=== PATIENT | male | born 1965 | race Caucasian/White ===

== ENCOUNTER 2017-05-08 21:01 | Emergency (ER) | payer BC, OTHER ==
[2017-05-08 21:22] VITALS: BP 136/84; PULSE 63; TEMP 97.8; BMI 32.5
--- NOTE | 2017-05-08 21:29 | PDOC ---
History of Present Illness - General Chief Complaint: Toothache Stated Complaint: TOOTH PAIN Time Seen by Provider: 05/08/17 21:06 - History of Present Illness Initial Comments: 05/08/17 21:25 "The patient is a 52 year old male, with a significant past medical history of depression, who presents to the emergency department with tooth pain for the past 3 days. States that the pain is in one of his left lower molars. Pain does not radiate. He denies any drainage or swelling from the area. He reports that he has been taking Advil which has relieved the pain significantly. He states that has not had any dental work in a long time. The patient denies chest pain, shortness of breath, and dizziness. Denies fever , chills, nausea, vomit, diarrhea and constipation. Allergies: Penicillins Past surgical history: None reported Social history: No alcohol, tobacco or drug use reported " Past History - Past Medical History Allergies/Adverse Reactions: Allergies Allergy/AdvReac Type Severity Reaction Status Date / Time Penicillins Allergy Verified 05/08/17 21:03 Home Medications: Ambulatory Orders Clindamycin [Cleocin -] 450 mg PO Q8H #21 capsule 05/08/17 COPD: No - Suicide/Smoking/Psychosocial Hx Smoking History: Unknown if ever smoked Have you smoked in the past 12 months: No Number of Cigarettes Smoked Daily: 0 Information on smoking cessation initiated: No Hx Alcohol Use: No Drug/Substance Use Hx: No Substance Use Type: None Review of Systems - Review of Systems Comments:: 05/08/17 21:26 "GENERAL/CONSTITUTIONAL: No fever or chills. No weakness. HEAD, EYES, EARS, NOSE AND THROAT: (+) Left bottom molar pain. No change in vision. No ear pain or discharge. No sore throat. CARDIOVASCULAR: No chest pain or shortness of breath. RESPIRATORY: No cough, wheezing, or hemoptysis. GASTROINTESTINAL: No nausea, vomiting, diarrhea or constipation. GENITOURINARY: No dysuria, frequency, or change in urination. MUSCULOSKELETAL: No joint or muscle swelling or pain. No neck or back pain. SKIN: No rash NEUROLOGIC: No headache, vertigo, loss of consciousness, or change in strength/ sensation. ENDOCRINE: No increased thirst. No abnormal weight change. HEMATOLOGIC/LYMPHATIC: No anemia, easy bleeding, or history of blood clots. ALLERGIC/IMMUNOLOGIC: No hives or skin allergy. " *Physical Exam - Vital Signs Last Vital Signs Temp Pulse Resp BP Pulse Ox 97.8 F 63 14 136/84 100 05/08/17 21:03 05/08/17 21:03 05/08/17 21:03 05/08/17 21:03 05/08/17 21:03 - Physical Exam Comments: 05/08/17 21:29 "GENERAL: Awake, alert, and fully oriented, in no acute distress HEAD: No signs of trauma EYES: PERRLA, EOMI, sclera anicteric, conjunctiva clear ENT: Auricles normal inspection, hearing grossly normal, nares patent, oropharynx clear without exudates. Moist mucosa MOUTH: Good dentition, no obvious caries noted, Tooth #18 with gum recession, mild tenderness with no swelling or drainage, no fluctuance noted NECK: Nontender, no stepoffs, Normal ROM, supple, no lymphadenopathy, JVD, or masses LUNGS: Breath sounds equal, clear to auscultation bilaterally. No wheezes, and no crackles HEART: Regular rate and rhythm, normal S1 and S2, no murmurs, rubs or gallops ABDOMEN: Soft, nontender, normoactive bowel sounds. No guarding, no rebound. No masses EXTREMITIES: Normal range of motion, no edema. No clubbing or cyanosis. No cords, erythema, or tenderness NEUROLOGICAL: Cranial nerves II through XII intact. 5/5 strength and sensation in all extremities, Normal speech, normal gait SKIN: Warm, Dry, normal turgor, no rashes or lesions noted. Medical Decision Making - Medical Decision Making 05/08/17 21:31 52 M with toothache at tooth #18. Exam reveals receding gum. Mild tenderness without other signs of obvious infection, though early dental infection cannot be excluded. - Clindamycin (pen-allergic) - Dental clinic f/u *DC/Admit/Observation/Transfer Diagnosis at time of Disposition: Toothache - Discharge Dispostion Disposition: HOME Condition at time of disposition: Good - Referrals - Patient Instructions Printed Discharge Instructions: DI for Dental Pain Additional Instructions: Take the antibiotics as prescribed. Be sure to follow up with a dentist as soon as possible to have your toothache further evaluated. Try to see one within 48 hours. If you experience worsening pain, swelling, fevers, or any other concerning symptoms, return to the ER immediately. - Post Discharge Activity - Attestations Physician Attestion: 05/08/17 21:37 I, Dr. Luis E Adam MD, attest that this document has been prepared under my direction and personally reviewed by me in its entirety. I further attest, that it accurately reflects all work, treatment, procedures and medical decision -making performed by me.
== END 2017-05-08 21:57 | disposition home or self-care (01) ==
LOC: FER 21:01
DX: K08.89 Other specified disorders of teeth and supporting structures (principal); F32.9 Major depressive disorder, single episode, unspecified
CPT/HCPCS: 99282-25

== ENCOUNTER 2023-08-09 09:26 | Day surgery (SDC) | payer BC, OTHER ==
[2023-08-09] MEDS: LEUPROLIDE ACETATE (ELIGARD) 22.5 MG SYRINGE SQ ONE (10:08)
[2023-08-09 14:35] VITALS: BP 118/72; PULSE 66; RESP 20; TEMP 98.9
== END 2023-08-09 10:30 | disposition home or self-care (01) ==
LOC: J7W 09:26 → JONCCHEMO 09:26
PROVIDERS: ATTEND Internal Medicine Hematology & Oncology
DX: C61 Malignant neoplasm of prostate (principal); Z76.89 Persons encountering health services in other specified circumstances
CPT/HCPCS: 96372; J9217

== ENCOUNTER 2024-02-06 09:00 | Day surgery (SDC) | payer BC, OTHER ==
[~2024-02-06 09:00] MED LIST: LEUPROLIDE ACETATE (ELIGARD) 22.5 MG SYRINGE SQ ONE
[2024-02-06] MEDS: LEUPROLIDE ACETATE (ELIGARD) 22.5 MG SYRINGE SQ ONE (09:11)
[2024-02-06 16:44] VITALS: BP 129/86; PULSE 70; RESP 20; TEMP 98.4
== END 2024-02-06 09:30 | disposition home or self-care (01) ==
LOC: J7W 09:00 → JONCCHEMO 09:00
PROVIDERS: ATTEND Internal Medicine Hematology & Oncology
PROC: 3E013GC Introduction of Other Therapeutic Substance into Subcutaneous Tissue, Percutaneous Approach (ICD-10-PCS; principal; 2024-02-06)
DX: C61 Malignant neoplasm of prostate (principal); Z76.89 Persons encountering health services in other specified circumstances
CPT/HCPCS: 96372; J9217

== ENCOUNTER 2024-05-08 09:09 | Day surgery (SDC) | payer BC, OTHER ==
[2024-05-08] MEDS: LEUPROLIDE ACETATE (ELIGARD) 22.5 MG SYRINGE SQ ONE (09:20)
[2024-05-08 16:49] VITALS: BP 144/92; PULSE 74; RESP 20; TEMP 98.5
== END 2024-05-08 09:40 | disposition home or self-care (01) ==
LOC: JONCCHEMO 09:09 → J7W 09:13 → JONCCHEMO 09:40
PROVIDERS: ATTEND Internal Medicine Hematology & Oncology
PROC: 3E013GC Introduction of Other Therapeutic Substance into Subcutaneous Tissue, Percutaneous Approach (ICD-10-PCS; principal; 2024-05-08)
DX: C61 Malignant neoplasm of prostate (principal)
CPT/HCPCS: 96372; J9217

== ENCOUNTER 2024-08-07 09:18 | Day surgery (SDC) | payer OTHER, BC ==
[2024-08-07] MEDS: LEUPROLIDE ACETATE (ELIGARD) 22.5 MG SYRINGE SQ ONE (09:31)
[2024-08-07 14:23] VITALS: BP 137/87; PULSE 75; RESP 20; TEMP 97.8
== END 2024-08-07 09:45 | disposition home or self-care (01) ==
LOC: JONCCHEMO 09:18 → J7W 09:19 → JONCCHEMO 09:45
PROVIDERS: ATTEND Internal Medicine Hematology & Oncology
DX: Z51.11 Encounter for antineoplastic chemotherapy (principal); C61 Malignant neoplasm of prostate
CPT/HCPCS: 96402; J9217

== ENCOUNTER 2024-11-04 09:57 | Day surgery (SDC) | payer BC, OTHER ==
[2024-11-04] MEDS: LEUPROLIDE ACETATE (ELIGARD) 22.5 MG SYRINGE SQ ONE (10:16)
[2024-11-04 10:36] VITALS: BP 137/93; PULSE 76; RESP 20; TEMP 98.1
== END 2024-11-04 10:30 | disposition home or self-care (01) ==
LOC: JONCCHEMO 09:57 → J7W 09:58 → JONCCHEMO 10:30
PROVIDERS: ATTEND Internal Medicine Hematology & Oncology
PROC: 3E013GC Introduction of Other Therapeutic Substance into Subcutaneous Tissue, Percutaneous Approach (ICD-10-PCS; principal; 2024-11-04)
DX: C61 Malignant neoplasm of prostate (principal); Z76.89 Persons encountering health services in other specified circumstances
CPT/HCPCS: 96372; J9217

== ENCOUNTER 2025-02-04 09:53 | Day surgery (SDC) | payer BC, OTHER ==
[2025-02-04] MEDS: LEUPROLIDE ACETATE (ELIGARD) 22.5 MG SYRINGE SQ ONE (10:06)
[2025-02-04 10:57] VITALS: BP 142/93; PULSE 84; RESP 20; TEMP 98.4
== END 2025-02-04 10:20 | disposition home or self-care (01) ==
LOC: JONCCHEMO 09:53 → J7W 10:19 → JONCCHEMO 10:20
PROVIDERS: ATTEND Internal Medicine Hematology & Oncology
PROC: 3E013GC Introduction of Other Therapeutic Substance into Subcutaneous Tissue, Percutaneous Approach (ICD-10-PCS; principal; 2025-02-04)
DX: C61 Malignant neoplasm of prostate (principal); Z76.89 Persons encountering health services in other specified circumstances
CPT/HCPCS: 96372; J9217